=== PATIENT | female | born 1960 | race Caucasian/White ===

== ENCOUNTER → 2023-07-08 | Outpatient (CLI) | payer MEDICAID, MEDICARE | LOC: M RAD 06:54 | PROVIDERS: ATTEND Internal Medicine Gastroenterology | DX: K59.00 Constipation, unspecified (principal) ==

== ENCOUNTER → 2023-07-22 | Outpatient (CLI) | payer MEDICARE ==
[~2023-07-22] MED LIST: E-Z-GAS II EFFERVESCENT PACKET (SODIUM BICARB./CITRIC ACID/SIMETHICONE) As Ordered ONE; E-Z-HD 98% w/w 340GM SUSP BTL As Ordered ONE; E-Z-PAQUE 96% w/w SUSP 176GM BTL As Ordered ONE
== END ==
LOC: M RAD 07:49
PROVIDERS: ATTEND Internal Medicine Gastroenterology
DX: K59.00 Constipation, unspecified (principal)

== ENCOUNTER 2023-09-05 11:09 | Day surgery (SDC) | payer MEDICAID, MEDICARE ==
[~2023-09-05] VITALS: Ht 170.2 cm; Wt 64.8 kg
[~2023-09-05 11:09] MED LIST changes: +ACET-861 PO; +ACYC1TAB4 PO; +ALBU6.7H6 INH; +ATOR1TAB19 PO; +BACL10TA2 PO; +BAYE81TA10 PO; +BRIM0.2S13 OD; +BUPR1TAB52 PO; +CALTTAB6 PO; +CENT1TAB PO; +COQ150CH PO; -E-Z-GAS II EFFERVESCENT PACKET (SODIUM BICARB./CITRIC ACID/SIMETHICONE) As Ordered ONE; -E-Z-HD 98% w/w 340GM SUSP BTL As Ordered ONE; -E-Z-PAQUE 96% w/w SUSP 176GM BTL As Ordered ONE; +NS 1,000 ML IV ONE; +PREDOPD OD; +PREM0.452 PO; +TREL1AER IN; +VENL150C43 PO; +VITA100018 PO; +VITA1TAB61 PO
[2023-09-05] MEDS ORDERED: propofoL 200 MG/20 ML VIAL As Ordered ONE (11:58)
[2023-09-05] MEDS ORDERED: LIDOCAINE 2% 100MG/5ML SDV (FOR ANES.) As Ordered ONE (11:58)
[2023-09-05] MEDS ORDERED: fentaNYL 100 MCG/2 ML INJECTION As Ordered ONE (13:22)
[2023-09-05 13:43] VITALS: TEMP 98.2
[2023-09-05 13:58] VITALS: BP 125/75; O2SAT 96
== END 2023-09-05 14:22 | disposition home or self-care (01) ==
LOC: M OPP 11:09
PROVIDERS: ATTEND Internal Medicine Gastroenterology
DX: K22.9 Disease of esophagus, unspecified (principal); K29.70 Gastritis, unspecified, without bleeding; K44.9 Diaphragmatic hernia without obstruction or gangrene; R93.3 Abnormal findings on diagnostic imaging of other parts of digestive tract; Z87.891 Personal history of nicotine dependence; Z79.02 Long term (current) use of antithrombotics/antiplatelets; Z79.1 Long term (current) use of non-steroidal anti-inflammatories (NSAID); Z79.51 Long term (current) use of inhaled steroids; Z79.52 Long term (current) use of systemic steroids; Z79.818 Long term (current) use of other agents affecting estrogen receptors and estrogen levels; Z79.82 Long term (current) use of aspirin; Z79.891 Long term (current) use of opiate analgesic; Z79.899 Other long term (current) drug therapy; Z88.5 Allergy status to narcotic agent
CPT/HCPCS: 43239; 88104; 88305; J3010

== ENCOUNTER 2023-12-12 08:46 | Day surgery (SDC) | payer MEDICARE ==
[~2023-12-12] VITALS: Ht 170.2 cm; Wt 65.7 kg
[~2023-12-12 08:46] MED LIST changes: +FAMO20TA5 PO; -NS 1,000 ML IV ONE; +POLY2.5S OD; +TIMO5DRO4 OU
[2023-12-12] MEDS: NS 1,000 ML IV ONE (09:22)
[2023-12-12 11:12] VITALS: TEMP 97.4
[2023-12-12 11:35] VITALS: BP 116/57; O2SAT 96
[2023-12-12] MEDS ORDERED: propofoL 500 MG/50 ML VIAL As Ordered ONE (11:35)
== END 2023-12-12 11:50 | disposition home or self-care (01) ==
LOC: M OPP 08:46
PROVIDERS: ATTEND Internal Medicine Gastroenterology
DX: Z86.010 Personal history of colon polyps (principal); K64.8 Other hemorrhoids; K64.4 Residual hemorrhoidal skin tags; Z87.891 Personal history of nicotine dependence; Z79.02 Long term (current) use of antithrombotics/antiplatelets; Z79.1 Long term (current) use of non-steroidal anti-inflammatories (NSAID); Z79.2 Long term (current) use of antibiotics; Z79.51 Long term (current) use of inhaled steroids; Z79.82 Long term (current) use of aspirin; Z79.891 Long term (current) use of opiate analgesic; Z79.899 Other long term (current) drug therapy; Z88.5 Allergy status to narcotic agent

== ENCOUNTER → 2025-05-02 | Outpatient (CLI) | payer MEDICARE ==
[~2025-05-02] MED LIST changes: +BUPR-670 PO; -BUPR1TAB52 PO; +ISOVUE-370 76% 100 ML VIAL As Ordered ONE
== END ==
LOC: M RAD 09:36
PROVIDERS: ATTEND Surgery Vascular Surgery
DX: G45.8 Other transient cerebral ischemic attacks and related syndromes (principal); I70.0 Atherosclerosis of aorta; R91.8 Other nonspecific abnormal finding of lung field; J43.9 Emphysema, unspecified; J98.11 Atelectasis
CPT/HCPCS: 71275; Q9967